=== PATIENT | male | born 1980 | race Caucasian/White ===

== ENCOUNTER 2018-01-29 14:32 | Emergency (ER) | payer OTHER, MEDICARE, SELFPAY ==
[2018-01-29 14:46] VITALS: BP 165/94; PULSE 83; RESP 18; TEMP 36.7; O2SAT 96
--- NOTE | 2018-01-29 15:05 | DI.RAD_ITS ---
SYMPTOMS/DIAGNOSIS: LT CHEST PAIN WITH SHORTNESS OF BREATH PA AND LATERAL CHEST: The heart is normal in size. The lungs are clear. The mediastinal structures and pleura appear intact. CONCLUSION: Normal chest.
--- NOTE | 2018-01-29 15:08 | W.ED.GENAD ---
Discharge Plan Disposition Patient Disposition: HOME Condition: Good Discharge Details Chief Complaint: Chest/Rib Clinical Impression: Chest wall pain, Bursitis of shoulder Primary Care Provider: None,None ED Provider: Zachery Chow Discharge Instructions Instructions: Shoulder Pain (ED), Chest Wall Pain (ED) Referrals: [facility] Emergency Dept. [Outside] - Return if symptoms worsen Discharge Data Discharge Date/Time-TO BE ENTERED AT DEPARTURE: 01/29/18 17:45 Medical Decision Making Exam and history consisting with chest wall pain and shoulder bursitis. However with chest pain and associated SOB with exertion I believe it would be prudent to evaluate for cardiac cause versus PE. He has no family history. Dad had valve replacement but not cardiac disease per se. I explained to him and dad this takes awhile and they are in agreement to stay. Apprised of lab work and x-ray impression. [facility]. No acute pathology found on labs are x-ray to explain pain. We discussed chest wall pain, shoulder bursitis, and diabetes. He agreed to f/u with pcp. Imaging Data Radiologic Study: Imaging: X-Ray My impression: No acute pathology on chest or shoulder. Radiologist's impression: [facility]: IMPRESSION: No acute findings. IMPRESSION: No acute findings. Lab Data Lab results reviewed: Yes I reviewed the patient's lab results. Lab results narrative: No acute pathology. Glucose elevated at 201. Advised to f/u with pcp to discuss diabetes. ECG Data Interpretation: No acute ST changes. Read by myself and Dr. Mckeon. HPI General Date/Time Provider Initiated Documentation: 01/29/18 14:40. Limitations to Documentation: no limitations. Information obtained by: patient. History of Present Illness 37 year old M presents to the emergency department with the chief complaint of left chest and shoulder pain. , described as mild, HPI Narrative: 37 y/o male here with his father with c/o left upper chest wall pain with associated SOB, left shoulder pain and left groin pain. The symptoms have been intermittent for the last three months. He lifts heavy objects at work which could cause the pain in chest and shoulder. Yesterday he was out hunting and he walked a mile in deep snow. The chest pain and sob started then as well as the left groin pain. Denies any illness or fever. Denies any falls or injuries. 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 He denies smoking but does chew tobacco. Quit drinking two years ago. Related Data Allergies Allergy/AdvReac Type Severity Reaction Status Date / Time No Known Allergies Allergy Unverified 01/29/18 15:37 General Stated Complaint: Chest/Rib MELISSA: 3 Review of Systems ENT Reports system reviewed and no additional complaints, except as docu Cardiovascular Reports chest pain, Reports chest pain with activity and Reports dyspnea on exertion Respiratory Reports cough (dry) and Reports dyspnea on exertion Gastrointestinal Reports system reviewed and no additional complaints, except as docu Genitourinary Comments: left groin pain PFSH Social History Smoking/Tobacco Use Status: Current every day Exam Const General: cooperative, comfortable and no acute distress Nutritional Appearance: overweight Orientation: alert, awake and oriented x3 HENMT Head: atraumatic Ears: hearing grossly normal bilaterally and external ears normal General nose exam: external nose normal Mouth: oral mucosae normal Eyes General: appearance normal, both eyes and all related structures Neck Neck: normal visual inspection, full ROM and no lymphadenopathy Chest Chest: normal inspection of the chest and tenderness (left upper) sternoclavicular joint on the left Breast inspection: normal inspection of the breasts Breast palpation: normal palpation of the breasts Resp Effort & Inspection: normal respiratory effort and able to speak in complete sentences Auscultation: clear to auscultation bilaterally Cardio Rate: regular rate Rhythm: regular rhythm Heart Sounds: S1 normal and S2 normal GI Inspection: normal to inspection and striae Palpation: soft and nontender Male General Exam: Yes normal external exam Penis: normal penis Meatus: meatus normal Scrotum: scrotum normal Testes: normal Back/Spine/Pelvis Back: No back tenderness Skin General skin exam: no rashes or lesions noted Neuro General: alert, awake, oriented x3, gait normal, tone normal and moves all extremities Extrem General: normal to inspection, full ROM and normal capillary refill Left upper extremity: normal to inspection, full ROM, normal capillary refill and shoulder/upper arm Details: tenderness Location: over the biceps tendon, over the subacromial bursa and over the deltoid bursa; no crepitus and no deformity Psych Appearance: grossly normal Speech and Movement: speech and movement normal Mood: congruent mood Affect: normal affect Attitude: cooperative Thought Process: normal Thought Content: normal Insight: insight good Judgment: judgment good Course Vital Signs Temperature 36.7 C 01/29/18 14:46 Pulse 83 01/29/18 14:46 Respiratory Rate 18 01/29/18 14:46 Blood Pressure 165/94 H 01/29/18 14:46 Pulse Oximetry 96 01/29/18 14:46 Temperature 36.7 C 01/29/18 14:46 Temperature Source Skin 01/29/18 14:46 Pulse 83 01/29/18 14:46 Respiratory Rate 18 01/29/18 14:46 Respiratory Effort 01/29/18 14:49 Respiratory Depth Normal 01/29/18 14:49 Respiratory Pattern Normal 01/29/18 14:49 Blood Pressure 165/94 H 01/29/18 14:46 Blood Pressure Position Sitting 01/29/18 14:46 Pulse Oximetry 96 01/29/18 14:46 Oxygen Delivery Method Room Air 01/29/18 14:46 Oxygen Flow Rate 0 01/29/18 14:46 Pain Level 2 01/29/18 14:49
--- NOTE | 2018-01-29 15:18 | DI.RAD_ITS ---
SYMPTOMS/DIAGNOSIS: SHOULDER PAIN LEFT SHOULDER: There is no evidence of a fracture or dislocation. The bony structures normally mineralized. The joint space is intact.
--- NOTE | 2018-01-29 15:18 | ED.GENADUL_ITS ---
Discharge Plan Disposition Patient Disposition: HOME Condition: Good Discharge Details Chief Complaint: Chest/Rib Clinical Impression: Chest wall pain, Bursitis of shoulder Primary Care Provider: None,None ED Provider: Zahcery Chow Discharge Instructions Instructions: Shoulder Pain (ED), Chest Wall Pain (ED) Referrals: [facility] Emergency Dept. [Outside] - Return if symptoms worsen Discharge Data Discharge Date/Time-TO BE ENTERED AT DEPARTURE: 01/29/18 17:45 Medical Decision Making Exam and history consisting with chest wall pain and shoulder bursitis. However with chest pain and associated SOB with exertion I believe it would be prudent to evaluate for cardiac cause versus PE. He has no family history. Dad had valve replacement but not cardiac disease per se. I explained to him and dad this takes awhile and they are in agreement to stay. Apprised of lab work and x-ray impression. [facility]. No acute pathology found on labs are x-ray to explain pain. We discussed chest wall pain, shoulder bursitis, and diabetes. He agreed to f/u with pcp. Imaging Data Radiologic Study: Imaging: X-Ray My impression: No acute pathology on chest or shoulder. Radiologist's impression: [facility]: IMPRESSION: No acute findings. IMPRESSION: No acute findings. Lab Data Lab results reviewed: Yes I reviewed the patient's lab results. Lab results narrative: No acute pathology. Glucose elevated at 201. Advised to f /u with pcp to discuss diabetes. ECG Data Interpretation: No acute ST changes. Read by myself and Dr. Mckeon. HPI General Date/Time Provider Initiated Documentation: 01/29/18 14:40 . Limitations to Documentation: no limitations . Information obtained by: patient . History of Present Illness 37 year old M presents to the emergency department with the chief complaint of left chest and shoulder pain. , described as mild, HPI Narrative: 37 y/o male here with his father with c/o left upper chest wall pain with associated SOB, left shoulder pain and left groin pain. The symptoms have been intermittent for the last three months. He lifts heavy objects at work which could cause the pain in chest and shoulder. Yesterday he was out hunting and he walked a mile in deep snow. The chest pain and sob started then as well as the left groin pain. Denies any illness or fever. Denies any falls or injuries. 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 He denies smoking but does chew tobacco. Quit drinking two years ago. Related Data Allergies Allergy/AdvReac Type Severity Reaction Status Date / Time No Known Allergies Allergy Unverified 01/29/18 15:37 General Stated Complaint: Chest/Rib MELISSA: 3 Review of Systems ENT Reports system reviewed and no additional complaints, except as docu Cardiovascular Reports chest pain, Reports chest pain with activity and Reports dyspnea on exertion Respiratory Reports cough (dry) and Reports dyspnea on exertion Gastrointestinal Reports system reviewed and no additional complaints, except as docu Genitourinary Comments: left groin pain PFSH Social History Smoking/Tobacco Use Status: Current every day Exam Const General: cooperative, comfortable and no acute distress Nutritional Appearance: overweight Orientation: alert, awake and oriented x3 HENMT Head: atraumatic Ears: hearing grossly normal bilaterally and external ears normal General nose exam: external nose normal Mouth: oral mucosae normal Eyes General: appearance normal, both eyes and all related structures Neck Neck: normal visual inspection, full ROM and no lymphadenopathy Chest Chest: normal inspection of the chest and tenderness (left upper) sternoclavicular joint on the left Breast inspection: normal inspection of the breasts Breast palpation: normal palpation of the breasts Resp Effort & Inspection: normal respiratory effort and able to speak in complete sentences Auscultation: clear to auscultation bilaterally Cardio Rate: regular rate Rhythm: regular rhythm Heart Sounds: S1 normal and S2 normal GI Inspection: normal to inspection and striae Palpation: soft and nontender Male General Exam: Yes normal external exam Penis: normal penis Meatus: meatus normal Scrotum: scrotum normal Testes: normal Back/Spine/Pelvis Back: No back tenderness Skin General skin exam: no rashes or lesions noted Neuro General: alert, awake, oriented x3, gait normal, tone normal and moves all extremities Extrem General: normal to inspection, full ROM and normal capillary refill Left upper extremity: normal to inspection, full ROM, normal capillary refill and shoulder/upper arm Details: tenderness Location: over the biceps tendon, over the subacromial bursa and over the deltoid bursa; no crepitus and no deformity Psych Appearance: grossly normal Speech and Movement: speech and movement normal Mood: congruent mood Affect: normal affect Attitude: cooperative Thought Process: normal Thought Content: normal Insight: insight good Judgment: judgment good Course Vital Signs Temperature 36.7 C 01/29/18 14:46 Pulse 83 01/29/18 14:46 Respiratory Rate 18 01/29/18 14:46 Blood Pressure 165/94 H 01/29/18 14:46 Pulse Oximetry 96 01/29/18 14:46 Temperature 36.7 C 01/29/18 14:46 Temperature Source Skin 01/29/18 14:46 Pulse 83 01/29/18 14:46 Respiratory Rate 18 01/29/18 14:46 Respiratory Effort 01/29/18 14:49 Respiratory Depth Normal 01/29/18 14:49 Respiratory Pattern Normal 01/29/18 14:49 Blood Pressure 165/94 H 01/29/18 14:46 Blood Pressure Position Sitting 01/29/18 14:46 Pulse Oximetry 96 01/29/18 14:46 Oxygen Delivery Method Room Air 01/29/18 14:46 Oxygen Flow Rate 0 01/29/18 14:46 Pain Level 2 01/29/18 14:49
[2018-01-29 15:34] LABS: Abs Immature Grans 0.02 k/cumm (0.0-0.09); Absolute Basophil Count 0.03 k/cumm (0.0-0.2); Absolute Eosinophil Count 0.08 k/cumm (0.0-0.7); Absolute Lymphocyte Count 2.82 k/cumm (1.2-3.4); Absolute Monocyte Count 0.81 k/cumm (0.11-0.7); Absolute Neutrophil Count 4.79 k/cumm (1.2-6.7); Basophils % 0.4; Eosinophils % 0.9; HCT 47.5 % (40.0-50.0); HGB 16.9 g/dL (13.5-17.5); Immature Grans % 0.2; Mean Corp. HGB Concentration 35.6 g/dL (32.0-36.0); Mean Corpuscular Hemoglobin 32.8 pg (27.0-33.0); Mean Corpuscular Volume 92.2 fL (80-95); Mean Platelet Volume 10.6 fL (8.0-11.0); Monocytes % 9.5; Platelet Count 229 x1000/uL (130-400); RBC 5.15 m/cumm (4.50-6.00); RBC Distribution Width 11.4 % (11.8-14.1); White Blood Cell Count 8.55 k/cumm (4.4-10.8)
[2018-01-29 15:52] LABS: Bilirubin Negative (Negative); Blood Negative (Negative); Clarity Clear; Glucose 500 mg/dL (Negative); Ketones 15 mg/dL (Negative); Leukocyte Esterase Negative (Negative); Nitrite Negative (Negative); Urobilinogen 0.2 EU/dL (Up TO 0.2)
[2018-01-29 15:54] LABS: ALT 56 U/L (12-78); AST 25 U/L (15-37); Albumin 4.1 g/dL (3.4-5.0); Alkaline Phosphatase 76 U/L (46-116); Anion Gap 6.6 mmol/L (3-11); BUN 11 mg/dL (7-18); Bilirubin, Total 0.5 mg/dL (0.2-1.0); CO2 30.4 mmol/L (21.0-32.0); CREATININE 0.98 mg/dL (0.70-1.30); Calcium 9.3 mg/dL (8.5-10.1); Chloride 103 mmol/L (98-107); Glucose 201 mg/dL (70-100); Lipase 117 U/L (73-393); Potassium 4.1 mmol/L (3.5-5.1); Sodium 140 mmol/L (136-145); Total Protein 7.8 g/dL (6.4-8.2)
[2018-01-29 16:03] LABS: Troponin I < 0.02 ng/mL (0.00-0.06)
[2018-01-29 16:10] LABS: D-Dimer 127 ng/mlFEU (<500)
[2018-01-29] MEDS: Normal Saline 1,000 ML 1000 ML IV (16:20)
--- NOTE | 2018-01-29 16:49 | DI.VRAD_ITS ---
EXAM: XR Chest, 2 Views EXAM DATE/TIME: 01/29/2018 3:07 PM CLINICAL HISTORY: 37 years old, male; Pain; Chest pain TECHNIQUE: XR of the chest, 2 views. COMPARISON: No relevant prior studies available. FINDINGS: Lungs: Unremarkable. No consolidation. Pleural space: Unremarkable. No pleural effusion. No pneumothorax. Heart/Mediastinum: Unremarkable. No cardiomegaly. Bones/joints: Unremarkable. IMPRESSION: No acute findings. Dictated and Authenticated by: Fredo Mendes MD. Ordering:KEREN HAGEN MD
--- NOTE | 2018-01-29 16:53 | DI.VRAD_ITS ---
EXAM: XR Left Shoulder Complete, 2 or More Views EXAM DATE/TIME: 01/29/2018 4:16 PM CLINICAL HISTORY: 37 years old, male; Pain; Shoulder; Left TECHNIQUE: XR Left shoulder complete 2 or more views. COMPARISON: No relevant prior studies available. FINDINGS: Bones/joints: Normal. Soft tissues: Normal. IMPRESSION: No acute findings. Dictated and Authenticated by: Fredo Mendes MD. Ordering:KEREN HAGEN MD
== END 2018-01-29 17:45 | disposition home or self-care (01) ==
LOC: ER 17:38
PROVIDERS: Emergency Provider Nurse Practitioner Family
DX: R07.81 Pleurodynia (principal); M75.52 Bursitis of left shoulder
CPT/HCPCS: 36415; 80053; 83690; 93005; 96360; 99285; 71046; 73030; 81003; 84484; 85025; 85379; 93010

== ENCOUNTER 2018-08-09 17:14 | Emergency (ER) | payer OTHER, MEDICARE, SELFPAY ==
[2018-08-09 17:26] VITALS: BP 170/94; PULSE 100; RESP 20; TEMP 36.8; O2SAT 94
--- NOTE | 2018-08-09 17:59 | ED.GENADUL_ITS ---
Discharge Plan Disposition Patient Disposition: HOME Condition: Stable Discharge Details Chief Complaint: Cellulitis Clinical Impression: Abscess of buttock, right Primary Care Provider: None,None ED Provider: Annie Mckeon Home Meds and New Rx's Prescriptions: New doxycycline hyclate 100 mg tablet 100 mg PO BID 7 Days Qty: 14 RF: 0 Continued risperidone [Risperdal] 4 mg Tablet 4 mg PO DAILY RF: 0 lisinopril 20 mg Tablet 10 mg PO DAILY RF: 0 divalproex [Depakote ER] 500 mg Tablet Extended Release 24 Hr 2,000 mg PO DAILY RF: 0 glipizide 5 mg Tablet 5 mg PO DAILY RF: 0 Risperdal Consta 50 mg/2 mL Syringe 50 mg IM RF: 0 Discharge Instructions Instructions: Abscess (ED) Additional Instructions: Take the antibiotics until finished. Apply warm compress to the affected area several times daily for 20 minutes at a time. Check your sugar regularly. Follow-up with your primary care doctor next week for reevaluation. Return immediately to the emergency department with any worsening or new concerning symptoms. Discharge Data Discharge Date/Time-TO BE ENTERED AT DEPARTURE: 08/09/18 18:28 Discharge Physician: Annie Mckeon Medical Decision Making 37yo M w/ a h/o diabetes who presents for painful draining lump to buttock. Afebrile. Pt appears nontoxic. There is a draining abscess noted to R buttock with serous drainage, no pus drainage. No fluctuance. As abscess is already draining, and no further areas of fluctuance noted, do not see an indication for I & D. Accucheck 250. Pt states he just ate. D/w pt the plan to obtain bloodwork to samreen ck electrolytes but pt is declining this at this time and states he can recheck his sugar at home and discuss this further with his primary care doctor if needed. Dose of doxycycline given here and script for home. Pt instructed on good wound care, warm compresses, alternating tylenol and motrin. Pt is instructed to f/u with his primary care doctor for reevaluation and to return here immediately if worse. HPI General Mode of arrival: ambulatory . Date/Time Provider Initiated Documentation: 08/09/18 17:33 . Limitations to Documentation: no limitations . Information obtained by: patient . HPI Narrative: Pt is a 37yo M who presents to the ED w/ a c/o painful lump on his buttock for the past week. He states the lump has gotten bigger and more painful. He states the area popped today and has been draining blood. Pt denies any fever, chills, abdominal pain. Pt has a h/o diabetes and states his sugars have been in the 100s-150s. Related Data Home Medications Medication Instructions Recorded Confirmed Risperdal Consta 50 mg IM 08/09/18 divalproex [Depakote ER] 2,000 mg PO DAILY 08/09/18 08/09/18 doxycycline hyclate 100 mg PO BID 7 Days #14 tab 08/09/18 glipizide 5 mg PO DAILY 08/09/18 08/09/18 lisinopril 10 mg PO DAILY 08/09/18 08/09/18 risperidone [Risperdal] 4 mg PO DAILY 08/09/18 08/09/18 Previous Rx's Medication Instructions Recorded doxycycline hyclate 100 mg PO BID 7 Days #14 tab 08/09/18 Allergies Allergy/AdvReac Type Severity Reaction Status Date / Time No Known Allergies Allergy Unverified 08/09/18 17:28 General Stated Complaint: Cellulitis MELISSA: 3 Review of Systems Review of Systems All systems reviewed & are unremarkable except as noted in HPI and below Constitutional Reports as per HPI, Denies chills and Denies fever(s) Eyes Denies blurry vision ENT Denies dizziness, Denies sore throat and Denies throat swelling Cardiovascular Denies chest pain and Denies dyspnea Respiratory Denies cough and Denies dyspnea Gastrointestinal Denies abdominal pain, Denies diarrhea and Denies vomiting Genitourinary Denies hematuria and Denies dysuria Musculoskeletal Denies back pain and Denies numbness Integumentary/Breasts Reports lesions and Denies rash Neurologic Denies dizziness, Denies focal weakness and Denies numbness Allergic/Immunologic Denies throat swelling [facility] Medical History Schizoaffective disorder (Acute) Diabetes (Chronic) HTN (hypertension) (Chronic) Surgical History History of foot surgery (Acute) Social History Smoking/Tobacco Use Status: Current every day Tobacco Type: smokeless tobacco Alcohol Intake: current Alcohol Intake frequency: 0-2 drinks per day Drug use: Occasionally Substance use type: marijuana Do you feel safe at home: Yes Do you feel safe in your relationship?: Yes Exam Const General: cooperative, healthy appearing and no acute distress HENMT Head: normal to inspection Face and sinus: normal facial exam Eyes General: appearance normal, both eyes and all related structures EOM: EOM intact bilaterally Neck Neck: normal visual inspection and No submandibular swelling Lymphatic: no lymphadenopathy noted Chest Chest: normal inspection of the chest and no tenderness Resp Effort & Inspection: normal respiratory effort and able to speak in complete sentences Auscultation: clear to auscultation bilaterally Cardio Rate: regular rate Rhythm: regular rhythm GI Inspection: normal to inspection Palpation: soft, not firm, not rigid and nontender Auscultation: normal bowel sounds Male General Exam: Yes normal external exam Back/Spine/Pelvis Thoracic/Lumbar Spine: thoracic and lumbar spine normal to inspection Skin Full body images: 1. An approximate 2 x 2 centimeter area of erythema and mild induration and tenderness to palpation with a 3 x 3 mm open draining area in center draining serous drainage. No fluctuance or pus drainage. No red streaking extending from erythema. Neuro General: alert, awake and oriented x3 Cognition: normal cognition Speech: speech normal Motor: muscle tone normal throughout Sensory Exam: no sensory deficits noted Extrem General: normal to inspection, full ROM and no edema Psych Appearance: grossly normal Mental Status: mental status grossly normal Speech and Movement: speech and movement normal Affect: normal affect Course Vital Signs Temperature 98.2 F 08/09/18 17:26 Pulse 100 H 08/09/18 17:26 Respiratory Rate 08/09/18 17:26 Blood Pressure 170/94 H 08/09/18 17:26 Pulse Oximetry 94 L 08/09/18 17:26 Temperature 98.2 F 08/09/18 17:26 Temperature Source Temporal Artery Scan 08/09/18 17:26 Pulse 100 H 08/09/18 17:26 Respiratory Rate 08/09/18 17:26 Respiratory Effort Non-Labored 08/09/18 17:26 Blood Pressure 170/94 H 08/09/18 17:26 Pulse Oximetry 94 L 08/09/18 17:26 Oxygen Delivery Method Room Air 08/09/18 17:26 Oxygen Flow Rate 0 08/09/18 17:26 Pain Level 4 08/09/18 17:26
[2018-08-09] MEDS: Doxycycline Hyclate 100 MG CAP 200 MG PO (18:20)
[2018-08-09] MEDS: Doxycycline Hyclate 100 MG CAP PO (18:20)
== END 2018-08-09 18:28 | disposition home or self-care (01) ==
PROVIDERS: Emergency Provider Physician Assistant
DX: L02.31 Cutaneous abscess of buttock (principal)
CPT/HCPCS: 36416; 82962; 99283

== ENCOUNTER 2018-10-31 02:31 | Emergency (ER) | payer OTHER, SELFPAY ==
[2018-10-31 02:36] VITALS: BP 136/101; PULSE 80; RESP 20; TEMP 37; O2SAT 98
--- NOTE | 2018-10-31 02:39 | ED.GENADUL_ITS ---
Discharge Plan Disposition Patient Disposition: HOME Condition: Good Discharge Details Chief Complaint: Orthopedic Clinical Impression: Foot pain, right Primary Care Provider: Nara Ackerman ED Provider: Juan Jameson Meds and New Rx's Prescriptions: New ibuprofen 600 mg tablet 600 mg PO TID PRN (Reason: pain) Qty: 15 RF: 0 Continued risperidone [Risperdal] 4 mg Tablet 4 mg PO DAILY RF: 0 lisinopril 20 mg Tablet 10 mg PO DAILY RF: 0 divalproex [Depakote ER] 500 mg Tablet Extended Release 24 Hr 2,000 mg PO DAILY RF: 0 glipizide 5 mg Tablet 5 mg PO DAILY RF: 0 Risperdal Consta 50 mg/2 mL Syringe 50 mg IM Q2W RF: 0 Discharge Instructions Additional Instructions: There is no evidence of fracture on the x-ray. This does not appear to be rel ated to an infection as there is no significant redness, warmth. Try keeping his foot elevated as much as you can over the weekend. Use ice and ibuprofen. Follow-up with primary care next week if not better. Return to ED if you develop fever, increasing pain/redness/swelling, other concerns or problems. Referrals: Nara Ackerman [Primary Care Provider] - Medical Decision Making Patient with isolated pain to the dorsum of the right foot. Reproducible with palpation of the fourth metatarsal head area. No discrete trauma that he reca lls. No evidence of erythema, warmth. Minimal swelling. I do not suspect infection. He took Tylenol earlier. Will give Motrin now and obtain x-ray to rule out stress fracture. X-ray per my review and preliminary radiology report is negative. Patient will use ice and ibuprofen over the weekend. Keep foot elevated as much as possible. Follow-up with primary care next week if not better. Return to ED if he develops fever, increasing pain/swelling/redness, other concerns or problems. HPI General Mode of arrival: ambulatory . Date/Time Provider Initiated Documentation: 10/31/18 02:38 . Limitations to Documentation: no limitations . Information obtained by: patient and RN notes reviewed . HPI Narrative: Patient presents to ED with right foot pain. Patient reports it began hurting this evening. He denies any injury that he recalls. He has difficulty ambulating. Pain is in the dorsum of the foot. He is diabetic. He thinks it looks a little red and swollen to him. He denies fevers or chills. Related Data Home Medications Medication Instructions Recorded Confirmed Risperdal Consta 50 mg IM Q2W 08/09/18 10/31/18 divalproex [Depakote ER] 2,000 mg PO DAILY 08/09/18 10/31/18 glipizide 5 mg PO DAILY 08/09/18 10/31/18 lisinopril 10 mg PO DAILY 08/09/18 10/31/18 risperidone [Risperdal] 4 mg PO DAILY 08/09/18 10/31/18 ibuprofen 600 mg PO TID PRN #15 tab 10/31/18 Previous Rx's Medication Instructions Recorded ibuprofen 600 mg PO TID PRN #15 tab 10/31/18 Allergies Allergy/AdvReac Type Severity Reaction Status Date / Time No Known Allergies Allergy Unverified 10/31/18 02:38 General Stated Complaint: Orthopedic MELISSA: 3 Review of Systems Constitutional Denies chills and Denies fever(s) Musculoskeletal Denies arthralgias and Denies joint swelling Integumentary/Breasts Denies erythema and Denies unusual bruising [facility] Medical History Diabetes (Chronic) HTN (hypertension) (Chronic) Schizoaffective disorder (Acute) Surgical History History of foot surgery (Acute) Social History Smoking/Tobacco Use Status: Current every day Tobacco Type: smokeless tobacco Alcohol Intake: current Alcohol Intake frequency: 0-2 drinks per day Drug use: Occasionally Substance use type: marijuana Do you feel safe at home: Yes Do you feel safe in your relationship?: Yes Exam Const General: cooperative, comfortable and no acute distress Orientation: alert and oriented x3 Skin General skin exam: no ecchymosis and no erythema Lesions: no lesions Wounds: no wounds Neuro General: alert, oriented x3 and no focal motor deficits Sensory Exam: no sensory deficits noted Extrem Other: Minimal swelling to the dorsum of the right foot. No erythema or ecchymosis. Point tender over the fourth metatarsal head region. No decreased range of motion or pain with range of motion of the toes or ankle. Neurovascularly intact. Course Vital Signs Temperature 98.6 F 10/31/18 02:36 Pulse 80 10/31/18 02:36 Respiratory Rate 20 10/31/18 02:36 Blood Pressure 136/101 H 10/31/18 02:36 Pulse Oximetry 98 10/31/18 02:36 Temperature 98.6 F 10/31/18 02:36 Temperature Source Tympanic 10/31/18 02:36 Pulse 80 10/31/18 02:36 Respiratory Rate 20 10/31/18 02:36 Blood Pressure 136/101 H 10/31/18 02:36 Blood Pressure Position Sitting 10/31/18 02:36 Pulse Oximetry 98 10/31/18 02:36 Oxygen Delivery Method Room Air 10/31/18 02:36 Oxygen Flow Rate 0 10/31/18 02:36 Pain Level 3 10/31/18 02:36
[2018-10-31] MEDS: Ibuprofen 600 MG TAB PO (02:55)
--- NOTE | 2018-10-31 03:03 | DI.RAD_ITS ---
SYMPTOM/DIAGNOSIS: PAIN, TENDERNESS 4TH MTP AREA RIGHT FOOT: Three views. No priors. No acute fracture or dislocation is identified. There are mild degenerative changes seen of the foot. There is a small plantar calcaneal spur. There is a small enthesophyte at the Achilles insertion site. Hammer toe deformities are seen at the second through fifth digits. IMPRESSION: No acute fracture or dislocation.
--- NOTE | 2018-10-31 03:44 | DI.VRAD_ITS ---
EXAM: XR Right Foot Complete EXAM DATE/TIME: 10/31/2018 2:46 AM CLINICAL HISTORY: 37 years old, male; Pain; Foot; Right; Additional info: Pain/tenderness right 4th mtp area TECHNIQUE: Imaging protocol: XR Right foot. Views: 3 or more views. COMPARISON: No relevant prior studies available. FINDINGS: Bones/joints: No fracture. Hammertoe deformities second through fifth digits. Minute plantar calcaneal spur. Minute enthesophyte at Achilles insertion Soft tissues: Normal. IMPRESSION: No acute findings. Dictated and Authenticated by: Sunil Oglesby MD. Ordering:ALINA Martinez MD
== END 2018-10-31 04:00 | disposition home or self-care (01) ==
PROVIDERS: Emergency Provider Emergency Medicine; PCP Nurse Practitioner Primary Care
DX: M79.671 Pain in right foot (principal); E11.9 Type 2 diabetes mellitus without complications; Z79.84 Long term (current) use of oral hypoglycemic drugs; I10 Essential (primary) hypertension
CPT/HCPCS: 99283; 73630

== ENCOUNTER 2020-07-03 04:18 | Emergency (ER) | payer MEDICARE, OTHER, SELFPAY ==
--- NOTE | 2020-07-03 04:21 | W.ED.GENAD ---
Discharge Plan Disposition Patient Disposition: HOME Condition: Stable Discharge Details Clinical Impression: Acute lumbar back pain Primary Care Provider: Nara Ackerman ED Provider: Juan Jameson Meds and New Rx's Prescriptions: New ibuprofen 600 mg tablet 600 mg PO TID PRN (Reason: pain) Qty: 15 RF: 0 methocarbamol 750 mg tablet 750 mg PO Q8H PRN (Reason: spasms) Qty: 15 RF: 0 lidocaine 5 % adhesive patch,medicated 1 patch topical DAILY Qty: 15 RF: 0 Continued risperidone [Risperdal] 4 mg Tablet 4 mg PO DAILY RF: 0 divalproex [Depakote ER] 500 mg Tablet Extended Release 24 Hr 2,000 mg PO DAILY RF: 0 glipizide 5 mg Tablet 5 mg PO DAILY RF: 0 Risperdal Consta 50 mg/2 mL Syringe 50 mg IM Q2W RF: 0 Discharge Instructions Instructions: Low Back Strain (ED) Additional Instructions: Your pain appears to be musculoskeletal in nature. Your labs and CT scan look fine. Activity as tolerated but do try to move around some, stretch and use ice or heat whichever seems to work better. Medications as prescribed to help with pain and spasm. Follow up with your doctor early nest week if not improving. Return to ED for neurological changes, bladder or bowel problems, other concerns. Referrals: Nara Ackerman [Primary Care Provider] - Medical Decision Making This appears to be musculoskeletal low back pain/spasm after bending over. Neuro in tact and no evidence of cauda equina. Abdomen is soft and NT. No urinary symptoms and does not appear to be renal colic. Young and history/exam not consistent with AAA. Will start IV and try some Toradol and Valium to see if any improvement. 06:10 - No change in pain despite Toradol, Valium and lidocaine patch. Patient stating pain worse on left side. Still seems MS in nature. However, given lack of improvement will send labs, obtain CT stone study and give dose of morphine. 06:55 - Labs and CT scan are fine. Patient sleeping on reevaluation. When told everything looked fine on labs and imaging and that this was MS back pain, he was ok with going home. Instructed activity as tolerated. Ice on/off for couple of days then switch to heat. Gentle stretching and massage. Ibuprofen, Robaxin and lidocaine patches will be prescribed. Follow up with PCP at [place] next week for recheck. Return if neuro changes, bladder/bowel problems, other concerns. HPI General Mode of arrival: EMS. Date/Time Provider Initiated Documentation: 07/03/20 04:20. Limitations to Documentation: no limitations. Information obtained by: patient and RN notes reviewed. HPI Narrative: Patient presents to ED by ambulance with low back pain. 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 [place] pain and spasm when he bent over. Was able to drive home and did take some Advil. Pain much worse with movement. Pain is across the lower back but seems more intense on the left side. No fever, cough, chest pain, shortness of breath. No N/V/D and persistent abdominal pain. Some mild pain shoots to abdomen when he tried to move around. No bladder or bowel incontinence. No numbness or weakness but has significant pain if tries to move LE. Related Data Home Medications Medication Instructions Recorded Confirmed Risperdal Consta 50 mg IM Q2W 08/09/18 07/03/20 divalproex [Depakote ER] 2,000 mg PO DAILY 08/09/18 07/03/20 glipizide 5 mg PO DAILY 08/09/18 07/03/20 risperidone [Risperdal] 4 mg PO DAILY 08/09/18 07/03/20 ibuprofen 600 mg PO TID PRN #15 tab 07/03/20 lidocaine 1 patch TOPICAL DAILY #15 ea 07/03/20 methocarbamol 750 mg PO Q8H PRN #15 tab 07/03/20 Previous Rx's Medication Instructions Recorded ibuprofen 600 mg PO TID PRN #15 tab 07/03/20 lidocaine 1 patch TOPICAL DAILY #15 ea 07/03/20 methocarbamol 750 mg PO Q8H PRN #15 tab 07/03/20 Allergies Allergy/AdvReac Type Severity Reaction Status Date / Time No Known Allergies Allergy Unverified 07/03/20 04:36 General MELISSA: 3 Review of Systems Constitutional Constitutional: Denies fever(s) and Denies weakness ENT Ears, Nose, Mouth, and Throat: Denies neck pain Cardiovascular Cardiovascular: Denies chest pain and Denies dyspnea Respiratory Respiratory: Denies cough and Denies dyspnea Gastrointestinal Gastrointestinal: Denies abdominal pain, Denies diarrhea, Denies nausea and Denies vomiting Genitourinary Genitourinary: Denies urinary incontinence Musculoskeletal Musculoskeletal: Reports abnormal gait, Reports back pain, Denies neck pain, Denies numbness and Denies tingling Neurologic Neurologic: Reports abnormal gait, Denies numbness, Denies tingling and Denies weakness [facility] Medical History (Updated 07/03/20 @ 06:57 by Juan Jameson MD) Diabetes HTN (hypertension) Schizoaffective disorder Surgical History History of foot surgery Social History Smoking/Tobacco Use Status: Current every day Tobacco Type: smokeless tobacco Smoking risk assessment performed?: Yes Alcohol Intake: former Drug use: Current Sobriety Substance use type: former substance user and marijuana Do you feel safe at home: Yes Do you feel safe in your relationship?: Yes Exam Narrative Exam Narrative: Const: WDWN male in NAD. HEENT: NC/AT. Normal facial exam. Eyes: Normal conjunctiva and sclera. Neck: Supple. Trachea midline. Lungs: Normal respiratory effort. Cor: RRR. Good radial pulses. GI: Soft. NT/ND. No guarding or rebound. Back: Left mid lumbar tenderness. Decreased ROM. No spinal tenderness. Neuro: A+O x 3. Normal speech, mentation. Cranial nerves II - XII grossly intact. No gross motor or sensory deficit. Strength and sensation is normal in BLE. DTR are equal and symmetric in LE. Ext: No C/C/E. Good DP pulses bilateral. Skin: Warm and dry without rash.
[2020-07-03 04:28] VITALS: BP 155/85; PULSE 52; RESP 18; TEMP 36.3; O2SAT 96
[2020-07-03] MEDS: diazePAM 10 MG/2 ML SYR 2.5 MG IVP ×2 (05:00→05:39)
[2020-07-03] MEDS: Ketorolac 30 MG/ML VIAL IVP (05:05)
[2020-07-03 05:11] VITALS: BP 119/77; PULSE 53; RESP 20; O2SAT 95
[2020-07-03] MEDS: Lidocaine 5% Patch 1 PATCH TP (05:34)
[2020-07-03 05:40] VITALS: BP 127/77; PULSE 51; RESP 18; O2SAT 94
--- NOTE | 2020-07-03 06:00 | DI.CT_ITS ---
EXAM: CT RENAL COLIC WO CLINICAL HISTORY: left back pain. TECHNIQUE: Imaging Protocol: Axial computed tomography images with coronal and sagittal reformatted images were created and reviewed CONTRAST MATERIAL: Intravenous: none Oral: None COMPARISON: No exams were available for comparison FINDINGS: VISUALIZED LUNG BASES: No nodules nor pleural effusions evident. ABDOMEN: There is no ascites. LIVER: There are no obvious focal hepatic lesions evident of this noninfused study. GALLBLADDER/BILIARY: No obvious gallbladder pathology. CBD is not dilated. PANCREAS: No evidence of pancreatic mass nor dilatation of the pancreatic duct. SPLEEN: Spleen is not enlarged. No obvious intrasplenic lesions. ADRENALS: There are no significant adrenal masses. KIDNEYS:No cysts evident. No solid renal masses. No calculi nor hydronephrosis. . ABDOMINAL AORTA: Abdominal aorta is not enlarged. LYMPH NODES: There is no retroperitoneal nor paraaortic adenopathy. ABDOMINAL WALL/GI: No evidence of significant anterior abdominal wall hernia. No bowel obstruction. PELVIS: LYMPH NODES: There is no intrapelvic nor inguinal adenopathy. GI: No evidence of appendicitis.No evidence of sigmoid diverticulitis. URINARY BLADDER: Distended. REPRODUCTIVE: Prostate is not enlarged. OSSEOUS: Nonexpansile sclerotic bone lesion in the posterior osseous elements of T12, possibly benign bone island versus osteoid osteoma. Measures 1.6 cm AP 1 x 1.2 cm. IMPRESSION: 1. No acute findings in the abdomen and pelvis. 2. Sclerotic bone lesion in the posterior osseous elements of T12, nonexpansile. Possibly benign bon e island versus osteoid osteoma. If clinically indicated nuclear bone scan could be performed. RADIATION DOSE DELIVERED: 1,107mGy.cm Total DLP DATA REPOSITORY: All CT scans at this facility are submitted to the National Radiology Data Registry (NRDR) Dose Index Registry (DIR) with the [employer] (ACR). RADIATION OPTIMIZATION: All CT scans at this facility use at least one of these dose optimization te chniques: automated exposure control; mA and/or kV adjustment per patient size (includes targeted exa ms where dose is matched to clinical indication); or iterative reconstruction.
[2020-07-03 06:23] LABS: Abs Immature Grans 0.02 10^3/uL (0.0-0.06); Absolute Basophil Count 0.05 10^3/uL (0.0-0.2); Absolute Eosinophil Count 0.24 10^3/uL (0.0-0.7); Absolute Lymphocyte Count 3.44 10^3/uL (1.2-3.4); Absolute Monocyte Count 0.58 10^3/uL (0.1-0.8); Absolute Neutrophil Count 3.15 10^3/uL (1.2-6.7); Basophils % 0.7; Eosinophils % 3.2; HCT 42.8 % (40.0-50.0); HGB 15.1 g/dL (13.5-17.5); Immature Grans % 0.3; MCH 31.5 pg (27.0-33.0); MCHC 35.3 % (32.0-36.0); MCV 89.4 fL (80-95); MPV 10.4 fL (8.0-11.0); Monocytes % 7.8; Nucleated RBC 0 %; Platelet Count 237 10^3/uL (130-400); RBC 4.79 10^6/uL (4.36-5.78); RDW 10.9 % (11.8-14.1); WBC 7.48 10^3/uL (4.4-10.8)
[2020-07-03 06:37] LABS: ALT 29 U/L (16-63); AST 10 U/L (15-37); Albumin 3.4 g/dL (3.4-5.0); Alkaline Phosphatase 82 U/L (46-116); Anion Gap 8.9 mmol/L (3-11); BUN 9 mg/dL (7-18); Bilirubin, Total 0.4 mg/dL (0.2-1.0); CO2 28.1 mmol/L (21.0-32.0); CREATININE 0.9 mg/dL (0.70-1.30); Calcium 8.6 mg/dL (8.5-10.1); Chloride 104 mmol/L (98-107); Glucose 268 mg/dL (74-106); Lipase 214 U/L (73-393); Sodium 141 mmol/L (136-145); Total Protein 6.6 g/dL (6.4-8.2)
--- NOTE | 2020-07-03 06:46 | DI.VRAD_ITS ---
PROCEDURE INFORMATION: Exam: CT Abdomen And Pelvis Without Contrast Exam date and time: 07/03/2020 6:28 AM Age: 39 years old Clinical indication: Other: Left back pain TECHNIQUE: Imaging protocol: Computed tomography of the abdomen and pelvis without contrast. COMPARISON: No relevant prior studies available. FINDINGS: Liver: Normal. No mass. Gallbladder and bile ducts: Normal. No calcified stones. No ductal dilation. Pancreas: Normal. No ductal dilation. Spleen: Normal. No splenomegaly. Adrenal glands: Normal. No mass. Kidneys and ureters: Normal. No hydronephrosis. Stomach and bowel: Unremarkable. No obstruction. No mucosal thickening. Appendix: No evidence of appendicitis. Intraperitoneal space: Unremarkable. No free air. No significant fluid collection. Vasculature: Unremarkable. No abdominal aortic aneurysm. Lymph nodes: Unremarkable. No enlarged lymph nodes. Urinary bladder: Unremarkable as visualized. Reproductive: Unremarkable as visualized. Bones/joints: Mild lumbar degenerative disc disease is noted Soft tissues: Unremarkable. IMPRESSION: No acute findings Dictated and Authenticated by: Dre Plasencia MD. Ordering:ALINA Martinez MD
[2020-07-03] MEDS: Methocarbamol 750 MG TAB PO (07:19)
== END 2020-07-03 08:38 | disposition home or self-care (01) ==
LOC: ER 07:12
PROVIDERS: Emergency Provider Emergency Medicine; PCP Nurse Practitioner Primary Care
DX: M54.5 Low back pain (principal)
CPT/HCPCS: 80053; 83690; 96374; 96375; 96376; 99284; 74176; 85025; 99283; J1885; J3360

== ENCOUNTER 2020-07-13 02:35 | Emergency (ER) | payer OTHER, SELFPAY ==
[2020-07-13 02:41] VITALS: BP 155/97; PULSE 80; RESP 18; TEMP 36.3; O2SAT 96
--- NOTE | 2020-07-13 02:44 | ED.GENADUL_ITS ---
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, Degenerative arthritis of metacarpophalangeal joint of right thumb Primary Care Provider: Nara Ackerman ED Provider: Martin Mccain Home Meds and New Rx's Prescriptions: Continued risperidone [Risperdal] 4 mg Tablet 4 mg PO DAILY RF: 0 divalproex [Depakote ER] 500 mg Tablet Extended Release 24 Hr 2,000 mg PO DAILY RF: 0 glipizide 5 mg Tablet 5 mg PO DAILY RF: 0 Risperdal Consta 50 mg/2 mL Syringe 50 mg IM Q2W RF: 0 ibuprofen 600 mg tablet 600 mg PO TID PRN (Reason: pain) Qty: 15 RF: 0 methocarbamol 750 mg tablet 750 mg PO Q8H PRN (Reason: spasms) Qty: 15 RF: 0 lidocaine 5 % adhesive patch,medicated 1 patch topical DAILY Qty: 15 RF: 0 Discharge Instructions Instructions: Arthritis (ED) Additional Instructions: At this time the pain in your thumbs is likely from your chronic injuries in the past from the fracture of your thumbs. Please use the splints as needed for help and support. Please take ibuprofen 800 mg every 6 hours as needed for pain. If you notice any worsening of your symptoms, or any new symptoms such as vomiting, diarrhea, fever, chills, shortness of breath, chest pain, numbness, weakness, or fainting , please return immediately to the emergency department for reevaluation. Please follow up with your primary care provider as soon as possible for reassessment and reevaluation. As always, it was a pleasure partic ipating in your medical care today. Referrals: Nara Ackerman [Primary Care Provider] - Medical Decision Making 39-year-old male presents today for bilateral thumb pain. Patient states that his thumbs have been sore since he was 9 years old when his father initially broke them. 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 He denies any new trauma, or acute change in pain and states that his finger continued and present for years. Uncertain as to what the specific reason is for the evaluation tonight otherwise. The patient has not use Tylenol or Motrin at home for his thumb pain. He denies any fever, chills, numbness, tingling, redness or warmth in his thumb. No other complaints at this time. Pain is made worse with use, and improved with rest. Physical exam is notably unremarkable, excellent sensation movement and strength for the thumb in all directions for both the left and right thumb. No significant crepitus deformity redness or warmth. Symptoms are inconsistent with fracture as he has had no recent trauma. Suspect that he has early arthritis secondary to the old fracture is that occurred 30 years ago. Recommend Tylenol, Motrin. Did give the patient a thumb spica brace for both hands and he felt that this was notable improvement for support. Patient will be discharged home. Diagnosis arthritis of the MCP joints bilaterally of the thumbs. I have extensively reviewed the treatment plan and discharge instruc tions with the patient. I have addressed all patient concerns at this time. The patient was made aware of what symptoms to monitor for that would warrant a return to the emergency department. Discussed the plan with the patient, they demonstrate verbal understanding and agreement with our assessment and plan at this time. The documentation in this chart was dictated using [employer] dictation software. Please excuse any dictation errors. Symptoms are currently inconsistent with evidence of significant rheumatoid arthritis or gout. HPI General Date/Time Provider Initiated Documentation: 07/13/20 02:38 . HPI Narrative: 39-year-old male presents today for bilateral thumb pain. Patient states that his thumbs have been sore since he was 9 years old when his father initially broke them. 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 He denies any new trauma, or acute change in pain and states that his finger continued and present for years. Uncertain as to what the specific reason is for the ev aluation tonight otherwise. The patient has not use Tylenol or Motrin at home for his thumb pain. He denies any fever, chills, numbness, tingling, redness or warmth in his thumb. No other complaints at this time. Pain is made worse with use, and improved with rest. Related Data Home Medications Medication Instructions Recorded Confirmed Risperdal Consta 50 mg IM Q2W 08/09/18 07/13/20 divalproex [Depakote ER] 2,000 mg PO DAILY 08/09/18 07/13/20 glipizide 5 mg PO DAILY 08/09/18 07/13/20 risperidone [Risperdal] 4 mg PO DAILY 08/09/18 07/13/20 ibuprofen 600 mg PO TID PRN #15 tab 07/03/20 07/13/20 lidocaine 1 patch TOPICAL DAILY #15 ea 07/03/20 07/13/20 methocarbamol 750 mg PO Q8H PRN #15 tab 07/03/20 07/13/20 Previous Rx's Medication Instructions Recorded ibuprofen 600 mg PO TID PRN #15 tab 07/03/20 lidocaine 1 patch TOPICAL DAILY #15 ea 07/03/20 methocarbamol 750 mg PO Q8H PRN #15 tab 07/03/20 Allergies Allergy/AdvReac Type Severity Reaction Status Date / Time No Known Allergies Allergy Unverified 07/13/20 02:42 General Stated Complaint: Orthopedic MELISSA: 4 Review of Systems All systems reviewed & are unremarkable except as noted in HPI and below PFSH Medical History Diabetes HTN (hypertension) Schizoaffective disorder Surgical History History of foot surgery Social History Smoking/Tobacco Use Status: Current every day Tobacco Type: smokeless tobacco Smoking risk assessment performed?: Yes Alcohol Intake: former Drug use: Current Sobriety Substance use type: former substance user and marijuana Do you feel safe at home: Yes Do you feel safe in your relationship?: Yes Exam Narrative Exam Narrative: 1.Const: Well-nourished, Well-developed, appearing stated age 2.Eyes: PERRL, no conjunctival injection, and symmetrical lids. 3.ENT: Atraumatic external nose and ears. Moist MM. Neck: Symmetric, trachea midline, No thyromegaly. 4.CVS: +S1/S2, No murmurs or gallops. Peripheral pulses 2+ and equal in all extremities. Brisk capillary refill in all extremities. 5.RESP: Unlabored respiratory effort. Clear to auscultation bilaterally. No wheezes rales or rhonchi 6.GI: Soft, Nontender/Nondistended, No hepatosplenomegaly. No guarding or rebound. 7.MSK: Normocephalic/Atraumatic, Extremities w/o deformity or ttp No cyanosis or clubbing, Normal movement of all extremities Patient demonstrates excellent movement of both thumbs in all directions for flexion, extension, abduction and adduction. No significant crepitus. No re dness. No deficits. No focal tenderness, no reproducible pain with palpation. Patient's subjective pain is located at the MCP joints of both thumbs. 8.Skin: Warm, Dry. No rashes or lesions. 9.Neuro: manager utility II-XII grossly intact. Sensation grossly intact, no focal neurologic deficits. 10.Psych: (AAO) x3. Appropriate mood and affect Course Vital Signs Vital signs: Vital Signs Temperature 36.3 C L 07/13/20 02:41 Pulse 80 07/13/20 02:41 Respiratory Rate 18 07/13/20 02:41 Blood Pressure 155/97 H 07/13/20 02:41 Pulse Oximetry 96 07/13/20 02:41 Temperature 36.3 C L 07/13/20 02:41 Temperature Source Temporal Artery Scan 07/13/20 02:41 Pulse 80 07/13/20 02:41 Respiratory Rate 18 07/13/20 02:41 Blood Pressure 155/97 H 07/13/20 02:41 Blood Pressure Position Sitting 07/13/20 02:41 Pulse Oximetry 96 07/13/20 02:41 Oxygen Delivery Method Room Air 07/13/20 02:41 Oxygen Flow Rate 0 07/13/20 02:41
== END 2020-07-13 02:48 | disposition home or self-care (01) ==
PROVIDERS: Emergency Provider Student in an Organized Health Care Education/Training Program; PCP Nurse Practitioner Primary Care
DX: M19.141 Post-traumatic osteoarthritis, right hand (principal); M19.142 Post-traumatic osteoarthritis, left hand
CPT/HCPCS: 29125; 99283

== ENCOUNTER 2020-08-22 19:32 | Emergency (ER) | payer OTHER, SELFPAY ==
[2020-08-22 19:39] VITALS: BP 158/97; PULSE 79; RESP 18; TEMP 36.8; O2SAT 99
--- NOTE | 2020-08-22 19:45 | DI.RAD_ITS ---
Exam(s) XR LUMBAR SPINE COMPLETE EXAM: XR LUMBAR SPINE COMPLETE CLINICAL HISTORY: lower lumbar back pain. TECHNIQUE: 2D digital imaging was performed. COMPARISON: No exams were available for comparison FINDINGS: BONES: No fracture or destructive lesion. Vertebral bodies are unremarkable. No facet hypertrophy vicenta ntified. DISKS: Mild disc space narrowing and spurring at L4-5 and L5-S1. ALIGNMENT: Lumbar spinal alignment is within normal limits. SOFT TISSUE: Normal. IMPRESSION: Mild degenerative changes in the lumbar spine. DATA REPOSITORY: RADIATION DOSE DELIVERED:
--- NOTE | 2020-08-22 19:59 | ED.GENADUL_ITS ---
Discharge Plan Disposition Patient Disposition: HOME Condition: Good Discharge Details Clinical Impression: Acute lumbar back pain Primary Care Provider: Nara Ackerman ED Provider: Martin Mccain Home Meds and New Rx's Prescriptions: New lidocaine [Lidoderm] 1 PATCH patch 1 patch Topical Q24H Qty: 4 RF: 0 cyclobenzaprine 10 mg tablet 10 mg PO TID Qty: 14 RF: 0 prednisone 50 MG tablet 50 mg PO DAILY Qty: 5 RF: 0 Continued risperidone [Risperdal] 4 mg Tablet 4 mg PO DAILY RF: 0 Risperdal Consta 50 mg/2 mL Syringe 50 mg IM Q2W RF: 0 ibuprofen 600 mg tablet 600 mg PO TID PRN (Reason: pain) Qty: 15 RF: 0 lidocaine 5 % adhesive patch,medicated 1 patch topical DAILY Qty: 15 RF: 0 Discharge Instructions Instructions: Low Back Strain (ED) Additional Instructions: At this time your signs and symptoms are clinically consistent with a back sprain. This can cause significant pain and take a fair bit of time to heal. I expect 1 to 2 months for potential resolution. In the meantime do not lift anything greater than 5 pounds for the next 2 weeks. Avoid any significant vigorous physical activity. Perform easy gentle regular activities at home without any significant bending or lifting. Please take the steroids as directed. You have been given a prescription for Lidoderm patch. If your insurance does not cover this you can get [id number] Lidoderm patches at 4% which are almost just as effective. Please take the Flexeril as directed but do not take it when driving or operating any vehicles or heavy machinery, swimming, taking long baths, or operating firearms. Please use a heating pad as often as possible on your back. Perform daily gentle stretches on your back. Please continue to take the Tylenol and Motrin. You can take 1000 mg of Tylenol every 6 hours and 600 mg of ibuprofen every 6 hours. If you notice any worsening of your symptoms, or any new symptoms such as vomiting, diarrhea, fever, chills, shortness of breath, chest pain, numbness or tingling in your groin or legs, weakness in your legs, loss of control for your bowels or bladder, or fainting , please return immediately to the emergency department for reevaluation. Please follow up with your primary care provider as soon as possible for reassessment and reevaluation. As always, it was a pleasure participating in your medical care today. Stand Alone Forms: Work Release Medical Decision Making 39-year-old male with a past medical history of arthritis, presents today for evaluation of back pain. Patient states that 4 days ago he was yanking on a cord when he developed mild low back pain. 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 Since then he has had worsening low back pain, as well as tingling over the anterior aspect of his left thigh. Patient denies any saddle anesthesia, numbness or tingling in the groin, change in sensation when wiping. Patient denies any change in sensation during sexual intercourse, difficulty achieving or maintaining an erection or ejaculation, bowel or bladder incontinence, leakage, or retention. Patient denies any weakness in the lower extremities, atypical falls or imbalance. No other complaints at this time. Patient has taken Tylenol and this did not help at all . Physical exam demonstrates notable paraspinal muscle spasms, no midline tenderness. Neurologic exam is unremarkable, good rectal tone, good perirectal sensation, no concerning red flags. No midline lumbar spine tenderness. Out of an abundance of caution we will get x-rays of the lumbar spine, give prednisone and Toradol. Suspect radiculopathy as the cause of his symptoms. Sensation of the anterior thighs notably intact in spite of his subjective symptoms of tingling on the anterior thigh. No indication for emergent MRI. No clinical evidence of cauda equina syndrome X-ray result is negative for acute process, there is mild to moderate multilevel lower lumbar degenerative disc disease. Signs and symptoms are clinically inconsistent with cauda equina syndrome. Pain is well improved after medication administration. Patient feels well. Patient will be discharged home. Will prescribe muscle relaxants, Lidoderm patch, and steroids. Discussed red flags which to return. Signs and symptoms at this time are clinically consistent with radiculopathy. I have extensively reviewed the treatment plan and discharge instructions with the patient. I have addressed all patient concerns at this time. The patient was made aware of what symptoms to monitor for that would warrant a return to the emergency department. Discussed the plan with the patient, they demonstrate verbal understanding and agreement with our assessment and plan at this time. The documentation in this chart was dictated using [employer] dictation software. Please excuse any dictation errors. FINDINGS: Bones/joints: Five lumbar type vertebral bodies. Pedicles and spinous processes appear intact on the frontal image. Sacroiliac joints are unremarkable. Oblique views demonstrate intact posterior elements. Mild L4-L5 and moderate L5-S1 disc space narrowing. Vertebral body heights and other disc spaces are maintained. No significant spondylolisthesis. Soft tissues: Unremarkable. IMPRESSION: [id number] multilevel lower lumbar degenerative disc disease. Thank you for allowing us to participate in the care of your patient. Dictated and Authenticated by: Fredo Conner MD 08/22/2020 9:16 PM Eastern Time ([place]) HPI General Date/Time Provider Initiated Documentation: 08/22/20 19:50 . HPI Narrative: 39-year-old male with a past medical history of arthritis, presents today for evaluation of back pain. Patient states that 4 days ago he was yanking on a cord when he developed mild low back pain. 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 Since then he has had worsening low back pain, as well as tingling over the anterior aspect of his left thigh. Patient denies any saddle anesthesia, numbness or tingling in the groin, change in sensation when wiping. Patient denies any change in sensation during sexual intercourse, difficulty achieving or maintaining an erection or ejaculation, bowel or bladder incontinence, leakage, or retention. Patient denies any weakness in the lower extremities, atypical falls or imbalance. No other complaints at this time. Patient has taken Tylenol and this did not help at same Related Data Home Medications Medication Instructions Recorded Confirmed Risperdal Consta 50 mg IM Q2W 08/09/18 08/22/20 risperidone [Risperdal] 4 mg PO DAILY 08/09/18 08/22/20 ibuprofen 600 mg PO TID PRN #15 tab 07/03/20 08/22/20 lidocaine 1 patch TOPICAL DAILY #15 ea 07/03/20 08/22/20 cyclobenzaprine 10 mg PO TID #14 tab 08/22/20 lidocaine [Lidoderm] 1 patch TOPICAL Q24H #4 ea 08/22/20 prednisone 50 mg PO DAILY #5 tab 08/22/20 Previous Rx's Medication Instructions Recorded ibuprofen 600 mg PO TID PRN #15 tab 07/03/20 lidocaine 1 patch TOPICAL DAILY #15 ea 07/03/20 cyclobenzaprine 10 mg PO TID #14 tab 08/22/20 lidocaine [Lidoderm] 1 patch TOPICAL Q24H #4 ea 08/22/20 prednisone 50 mg PO DAILY #5 tab 08/22/20 Allergies Allergy/AdvReac Type Severity Reaction Status Date / Time No Known Allergies Allergy Unverified 08/22/20 19:42 General Stated Complaint: Nk/Back Pain MELISSA: 4 Review of Systems All systems reviewed & are unremarkable except as noted in HPI and below PFSH Medical History (Updated 08/22/20 @ 21:11 by Martin Mccain DO) Diabetes HTN (hypertension) Schizoaffective disorder Surgical History History of foot surgery Social History Smoking/Tobacco Use Status: Current every day Tobacco Type: smokeless tobacco Smoking risk assessment performed?: Yes Alcohol Intake: former Drug use: Current Sobriety Substance use type: former substance user Do you feel safe at home: Yes Do you feel safe in your relationship?: Yes Exam Narrative Exam Narrative: 1.Const: Well-nourished, Well-developed, appearing stated age 2.Eyes: PERRL, no conjunctival injection, and symmetrical lids. 3.ENT: Atraumatic external nose and ears. Moist MM. Neck: Symmetric, trachea midline, No thyromegaly. 4.CVS: +S1/S2, No murmurs or gallops. Peripheral pulses 2+ and equal in all extremities. Brisk capillary refill in all extremities. 5.RESP: Unlabored respiratory effort. Clear to auscultation bilaterally. No wheezes rales or rhonchi 6.GI: Soft, Nontender/Nondistended, No hepatosplenomegaly. No guarding or rebound. 7.MSK: Normocephalic/Atraumatic, Extremities w/o deformity or ttp No cyanosis or clubbing, Normal movement of all extremities. No midline tenderness to palpation over the CTLS spine. Mild bilateral lower paraspinal lumbar tenderness and notable paraspinal muscle spasm. normal ROM in flexion, extension, side bend, and rotation. Patient has +5 out of 5 strength in the lower extremities in dorsiflexion and plantarflexion, knee flexion and extension, hip flexion and extension. Normal strength for dorsiflexion and plantar flexion of the great toe bilaterally. There is +2 over 2 dorsalis pedis pulses bilaterally. There is normal sensation to the skin with light touch at the foot, knee, and hip. Normal saddle sensation. Good sensation over the deep sural nerve area bilaterally. Rectal exam demonstrates good rectal tone and good perirectal sensation. Reflexes are +2 over 4 in the patellar reflex bilaterally. 8.Skin: Warm, Dry. No rashes or lesions. 9.Neuro: weight shifter II-XII grossly intact. Sensation grossly intact, no focal neurologic deficits. 10.Psych: (AAO) x3. Appropriate mood and affect Course Vital Signs Vital signs: Vital Signs Temperature 36.8 C 08/22/20 19:39 Pulse 79 08/22/20 19:39 Respiratory Rate 18 08/22/20 19:39 Blood Pressure 158/97 H 08/22/20 19:39 Pulse Oximetry 99 08/22/20 19:39 Temperature 36.8 C 08/22/20 19:39 Temperature Source Skin 08/22/20 19:39 Pulse 79 08/22/20 19:39 Respiratory Rate 18 08/22/20 19:39 Respiratory Effort Non-Labored 08/22/20 19:42 Blood Pressure 158/97 H 08/22/20 19:39 Blood Pressure Position Sitting 08/22/20 19:39 Pulse Oximetry 99 08/22/20 19:39 Oxygen Delivery Method Room Air 08/22/20 19:39 Oxygen Flow Rate 0 08/22/20 19:39 Pain Level 7 08/22/20 19:44
[2020-08-22] MEDS: Ketorolac 30 MG/ML VIAL IM (20:11)
[2020-08-22] MEDS: predniSONE 20 MG TAB 60 MG PO (20:12)
--- NOTE | 2020-08-22 21:17 | DI.VRAD_ITS ---
PROCEDURE INFORMATION: Exam: XR Lumbosacral Spine Exam date and time: 08/22/2020 7:55 PM Age: 39 years old Clinical indication: Other: Lower lumbar back pain TECHNIQUE: Imaging protocol: XR of the lumbosacral spine. Views: 4 or 5 views. COMPARISON: CT RENAL COLIC WO 07/03/2020 6:31 AM FINDINGS: Bones/joints: Five lumbar type vertebral bodies. Pedicles and spinous processes appear intact on the frontal image. Sacroiliac joints are unremarkable. Oblique views demonstrate intact posterior elements. Mild L4-L5 and moderate L5-S1 disc space narrowing. Vertebral body heights and other disc spaces are maintained. No significant spondylolisthesis. Soft tissues: Unremarkable. IMPRESSION: [id number] multilevel lower lumbar degenerative disc disease. Dictated and Authenticated by: Fredo Conner MD. Ordering:DIONNE Salazar MD
== END 2020-08-22 20:20 | disposition home or self-care (01) ==
PROVIDERS: Emergency Provider Student in an Organized Health Care Education/Training Program; PCP Nurse Practitioner Primary Care
DX: M54.5 Low back pain (principal)
CPT/HCPCS: 96372; 99284; 72110; 99283; J1885; J7512

== ENCOUNTER 2020-08-29 01:20 | Emergency (ER) | payer OTHER, SELFPAY ==
[2020-08-29 01:24] VITALS: BP 142/103; PULSE 84; RESP 18; TEMP 36.8; O2SAT 93
--- NOTE | 2020-08-29 01:26 | ED.GENADUL_ITS ---
Discharge Plan Disposition Patient Disposition: HOME Condition: Good Discharge Details Clinical Impression: Inguinal mass Primary Care Provider: Nara Ackerman ED Provider: Juan Jameson Meds and New Rx's Prescriptions: Continued risperidone [Risperdal] 4 mg Tablet 4 mg PO DAILY RF: 0 Risperdal Consta 50 mg/2 mL Syringe 50 mg IM Q2W RF: 0 ibuprofen 600 mg tablet 600 mg PO TID PRN (Reason: pain) Qty: 15 RF: 0 lidocaine 5 % adhesive patch,medicated 1 patch topical DAILY Qty: 15 RF: 0 lidocaine [Lidoderm] 1 PATCH patch 1 patch Topical Q24H Qty: 4 RF: 0 cyclobenzaprine 10 mg tablet 10 mg PO TID Qty: 14 RF: 0 prednisone 50 MG tablet 50 mg PO DAILY Qty: 5 RF: 0 Discharge Instructions Additional Instructions: You should follow up with primary care. Likely need a scrotal ultrasound to delineate what these are though I suspect they are spermatoceles. Return to ED for increasing pain, redness, abdominal pain, fever, other concerns Referrals: Nara Ackerman [Primary Care Provider] - Medical Decision Making Patient presenting with masses at the entrance of the inguinal canals. The right is much larger than the left. Both are nontender, rounded in nature, firm and appear to be related to the spermatic cord. Testicles and epididymis feel normal. I do not appreciate masses associated with the testicle. The inguinal canals themselves appear normal with no fullness or mass felt in the canal. The masses do not feel like varicoceles and are firm and round. This is not hydrocele. Consider spermatocele but masses seem relatively high for this. May be inguinal hernias but lacks fullness within the canal itself. Recommend follow-up with primary care for scrotal ultrasound as outpatient. Return to ED if abdominal pain, fever, increased swelling/pain/redness in the scrotal area, other concerns. HPI General Mode of arrival: ambulatory . Date/Time Provider Initiated Documentation: 08/29/20 01:25 . Limitations to Documentation: no limitations . Information obtained by: patient and RN notes reviewed . HPI Narrative: Patient presents to the ED with complaint of lumps in his scrotum. He has noticed one on the right side for a few months now. Noticed one on the left recently. They seem to be getting larger. Little uncomfortable but not necessarily painful. He has no difficulty urinating. He has no discharge. There are no wounds or sores present. He denies any abdominal pain. Related Data Home Medications Medication Instructions Recorded Confirmed Risperdal Consta 50 mg IM Q2W 08/09/18 08/29/20 risperidone [Risperdal] 4 mg PO DAILY 08/09/18 08/29/20 ibuprofen 600 mg PO TID PRN #15 tab 07/03/20 08/29/20 lidocaine 1 patch TOPICAL DAILY #15 ea 07/03/20 08/29/20 cyclobenzaprine 10 mg PO TID #14 tab 08/22/20 08/29/20 lidocaine [Lidoderm] 1 patch TOPICAL Q24H #4 ea 08/22/20 08/29/20 prednisone 50 mg PO DAILY #5 tab 08/22/20 08/29/20 Previous Rx's Medication Instructions Recorded ibuprofen 600 mg PO TID PRN #15 tab 07/03/20 lidocaine 1 patch TOPICAL DAILY #15 ea 07/03/20 cyclobenzaprine 10 mg PO TID #14 tab 08/22/20 lidocaine [Lidoderm] 1 patch TOPICAL Q24H #4 ea 08/22/20 prednisone 50 mg PO DAILY #5 tab 08/22/20 Allergies Allergy/AdvReac Type Severity Reaction Status Date / Time No Known Allergies Allergy Unverified 08/29/20 01:28 General MELISSA: 4 Review of Systems Constitutional Constitutional: Denies fever(s) Cardiovascular Cardiovascular: Denies dyspnea Respiratory Respiratory: Denies cough and Denies dyspnea Gastrointestinal Gastrointestinal: Denies abdominal pain and Denies vomiting Genitourinary Genitourinary: Denies difficulty urinating, Denies genital pain, Denies dysuria, Denies penile discharge, Denies scrotal swelling and Denies testicular pain Integumentary/Breasts Skin/Breast: Denies erythema and Denies wounds [facility] Medical History (Updated 08/29/20 @ 01:37 by Juan Jameson MD) Diabetes HTN (hypertension) Schizoaffective disorder Surgical History History of foot surgery Social History Smoking/Tobacco Use Status: Current every day Tobacco Type: smokeless tobacco Smoking risk assessment performed?: Yes Alcohol Intake: former Drug use: Current Sobriety Substance use type: former substance user Do you feel safe at home: Yes Do you feel safe in your relationship?: Yes Exam Narrative Exam Narrative: Const: WDWN male in NAD. HEENT: NC/AT. Normal facial exam. Eyes: Normal conjunctiva and sclera. Neck: Supple. Trachea midline. Lungs: Normal respiratory effort. : Normal appearing male genitalia. Normal penis without discharge or lesions. Normal testicles without tenderness or masses. Normal feeling epididymis. Firm, round, non-tender mass just below the entrance of the inguinal canal on both sides but much larger on right. No fullness or mass appreciated within the inguinal canals. Scrotum appears normal. Neuro: A+O x 3. Normal speech, mentation, gait. Cranial nerves II - XII grossly intact. No gross motor or sensory deficit.
== END 2020-08-29 01:41 | disposition home or self-care (01) ==
PROVIDERS: Emergency Provider Emergency Medicine; PCP Nurse Practitioner Primary Care
DX: N50.89 Other specified disorders of the male genital organs (principal)
CPT/HCPCS: 99282; 99283

== ENCOUNTER 2020-10-01 22:08 | Emergency (ER) | payer OTHER, SELFPAY ==
[2020-10-01 22:15] VITALS: BP 159/97; PULSE 75; RESP 18; TEMP 36.5; O2SAT 98
--- NOTE | 2020-10-01 22:41 | W.ED.GENAD ---
Discharge Plan Disposition Patient Disposition: HOME Condition: Good Discharge Details Clinical Impression: Accidental spider bite Primary Care Provider: Nara Ackerman ED Provider: Aline Menchaca Home Meds and New Rx's Prescriptions: No Action Risperdal Consta 50 mg/2 mL Syringe 50 mg IM Q2W RF: 0 Discharge Instructions Additional Instructions: You may take ibuprofen and Tylenol as needed for pain Keep bite site clean and dry Return for spreading redness, fever, worsening pain This is likely a bui spider and they do not carry that on the toxic human Discharge Data Discharge Date/Time-TO BE ENTERED AT DEPARTURE: 10/01/20 22:50 Medical Decision Making Patient appears well, there is no visible evidence of skin irritation or injury The provider patient brought in with low spider and patient is made aware that this is not toxic spider that the cat bite Patient given low threshold to return with new or worsening complaints and discharged home in stable condition with stable vitals and instructed to use supportive measures, ibuprofen and Tylenol for pain control and Benadryl topically as needed for itching Patient instructed to have blood pressure checked by primary care physician Medical Records Medical records reviewed: Yes I reviewed the patient's medical records. HPI General Mode of arrival: ambulatory. Date/Time Provider Initiated Documentation: 10/01/20 22:41. Limitations to Documentation: no limitations. Information obtained by: patient. HPI Narrative: This 39-year-old gentleman presents with report of spider bite to the popliteal region of his right knee. Patient states that he only saw a spider whacked spattering child. Today in the back 3 the neurological spider was. He states that the red chela to the area where the bite occurred. He denies any additional injuries or concerns at this time. Denies chest pain, shortness of breath, dizziness, weakness, difficulty swallowing, or any additional complaints at this time. He states the pain is not worsening. Related Data Home Medications Medication Instructions Recorded Confirmed Risperdal Consta 50 mg IM Q2W 08/09/18 10/01/20 Allergies Allergy/AdvReac Type Severity Reaction Status Date / Time No Known Allergies Allergy Unverified 08/29/20 01:28 General Stated Complaint: Cellulitis MELISSA: 4 Review of Systems Narrative: Review of systems negative x3 aside from indicated in HPI [facility] Medical History (Updated 10/01/20 @ 22:42 by AN Rowe) Diabetes HTN (hypertension) Schizoaffective disorder Surgical History History of foot surgery Social History Smoking/Tobacco Use Status: Current every day Tobacco Type: smokeless tobacco Smoking risk assessment performed?: Yes Alcohol Intake: former Drug use: Current Sobriety Substance use type: former substance user Do you feel safe at home: Yes Do you feel safe in your relationship?: Yes Exam Const General: cooperative and healthy appearing Extrem Other: In the popliteal region there is no visible sign of trauma, no necrosis, no crepitus, no abscess Course Vital Signs Vital signs: Vital Signs Temperature 36.5 C 10/01/20 22:15 Pulse 75 10/01/20 22:15 Respiratory Rate 18 10/01/20 22:15 Blood Pressure 159/97 H 10/01/20 22:15 Pulse Oximetry 98 10/01/20 22:15 Temperature 36.5 C 10/01/20 22:15 Temperature Source Skin 10/01/20 22:15 Pulse 75 10/01/20 22:15 Respiratory Rate 18 10/01/20 22:15 Respiratory Effort Non-Labored 10/01/20 22:19 Blood Pressure 159/97 H 10/01/20 22:15 Pulse Oximetry 98 10/01/20 22:15 Pain Level 1 10/01/20 22:15
== END 2020-10-01 22:50 | disposition home or self-care (01) ==
PROVIDERS: Emergency Provider Physician Assistant; PCP Nurse Practitioner Primary Care
DX: S80.261A Insect bite (nonvenomous), right knee, initial encounter (principal); W57.XXXA Bitten or stung by nonvenomous insect and other nonvenomous arthropods, initial encounter
CPT/HCPCS: 99282; 99283

== ENCOUNTER 2021-09-12 23:21 | Emergency (ER) | payer OTHER, SELFPAY | END 2021-09-13 00:17 | disposition left against medical advice (07) | PROVIDERS: PCP Nurse Practitioner Primary Care | DX: Z53.21 Procedure and treatment not carried out due to patient leaving prior to being seen by health care provider (principal) ==

== ENCOUNTER 2021-10-13 13:51 | Emergency (ER) | payer MEDICARE, OTHER, SELFPAY ==
--- NOTE | 2021-10-13 13:45 | RT.EKG_ITS ---
APPROVED REPORT Exam: Resting ECG Reason for Exam: GRACE Patient Location: E HR:58 bpm ECG Measurements Heart Rate 58 AXIS GA 177 P 54 QRSd 107 QRS 6 QT 409 T 28 QTc 403 Conclusion Sinus bradycardia...rate< 60. Sinus. No STEMI. I have reviewed and interpreted ECG and agree with software generated interpretation.
[2021-10-13 13:53] VITALS: BP 144/86; PULSE 63; RESP 18; TEMP 36.6; O2SAT 100
--- NOTE | 2021-10-13 14:00 | DI.CT_ITS ---
Exam(s) CT HEAD WO EXAM: CT HEAD WO CLINICAL HISTORY: headache, slurred speech, r/o acute disease. TECHNIQUE: Imaging Protocol: Axial computed tomography images with coronal and sagittal reformatted images were created and reviewed COMPARISON: No exams were available for comparison FINDINGS: Ventricles and Extra axial spaces: Normal in size and morphology for the patient's age. Hemorrhage: None. Cerebral parenchyma: No acute territorial infarct. There is normal warren-white matter differentiation . Midline shift: None. Brainstem/Cerebellum: Normal. Calvarium: Normal. Visualized Paranasal sinuses/Mastoids: Clear. Soft Tissues: Unremarkable. IMPRESSION: 1. No acute intracranial process. 2. Results of this exam have been verbally communicated with provider. RADIATION DOSE DELIVERED: 901.19mGy.cm Total DLP DATA REPOSITORY: All CT scans at this facility are submitted to the National Radiology Data Registry (NRDR) Dose Index Registry (DIR) with the [employer] (A[employer]). RADIATION OPTIMIZATION: All CT scans at this facility use at least one of these dose optimization te chniques: automated exposure control; mA and/or kV adjustment per patient size (includes targeted exa ms where dose is matched to clinical indication); or iterative reconstruction.
--- NOTE | 2021-10-13 14:11 | DI.RAD_ITS ---
Exam(s) XR CHEST 2V PA LATERAL EXAM: XR CHEST 2V PA LATERAL CLINICAL HISTORY: weakness, r/o acute disease TECHNIQUE: 2D digital imaging was performed of the chest. Two images were obtained. PA and lateral views were obtained. COMPARISON: CR XR CHEST 2V PA LATERAL from 01/29/2018 FINDINGS: MEDIASTINUM: Normal. HEART: Normal. PULMONARY VASCULATURE: Normal. LUNGS: Clear. PLEURAL SPACE: No pleural effusion or pneumothorax. BONE:Within normal limits for the patient's age. OTHER FINDINGS:Normal. IMPRESSION: No acute pulmonary findings. DATA REPOSITORY: RADIATION DOSE DELIVERED:
--- NOTE | 2021-10-13 14:11 | NUR.NOTE ---
Nursing Note:Pt seen by provider, to di on monitor via stretcher for ordered exam w/RN.
--- NOTE | 2021-10-13 14:14 | ED.GENADUL_ITS ---
Discharge Plan Disposition Patient Disposition: HOME Condition: Improving Discharge Details Clinical Impression: Anxiety Primary Care Provider: Nara Ackerman ED Provider: Shon Gilmore Home Meds and New Rx's Prescriptions: No Action atorvastatin 20 mg Tablet 20 mg PO QHS lisinopril 20 mg Tablet 20 mg PO DAILY insulin glargine 100 unit/mL (3 mL) Insulin Pen 20 unit SUBCUT QHS Risperdal Consta 50 mg/2 mL Syringe 50 mg IM Q2W Discharge Instructions Instructions: Anxiety (ED) Additional Instructions: Please follow-up with your primary care physician. Please return to the emergency department for any worsening symptoms. Discharge Data Discharge Date/Time-TO BE ENTERED AT DEPARTURE: 10/13/21 17:53 Medical Decision Making <Annie Mckeon, - Last Filed: 10/14/21 22:24> 10/13/21 Dr. Mckeon 1415 -- 40-year-old male with a history of obesity, diabetes, schizoaffective disorder, hypertension presents for a complaint of not feeling good and EMS report of hyperglycemia. Patient reports to me his main complaint is paranoia causing a feeling that I can't speak. Pt also admits to similar episodes of difficulty speaking with anxiety and paranoia. Glucose 372 on arrival. Pt states his normal glucose is in the 300 range. Vitals within normal limits. EKG notes a rate of 58, sinus, no STEMI nondiagnostic. Patient appears significantly anxious with stuttering speech. He otherwise has no focal deficits on exam and answers questions appropriately. Presentation does not appear consistent with acute CVA, meningitis or ACS. Suspect psychiatric component. Considering his medical history, will obtain screening labs, CT head, chest x-ray, urinalysis, VBG. We will give a dose of Ativan and IV Tylenol. 1545 -- Labs and imaging reviewed and unremarkable. Patient remains significantly drowsy after Ativan. He has been unable to provide a urine sample. We will continue to monitor and attempt to feed and ambulate. 1640 --patient sleeping but able to awaken and he states he feels much better. Will obtain a urine sample, recheck glucose and plan to feed and ambulate. Case endorsed to Dr. Gilmore to follow up on urinalysis, fingerstick glucose and reassess after meal and ambulatory trial. If patient continues to feel better, will plan for discharge to home with follow-up with PCP. 10/13/21 Dr. Gilmore 17: 40 patient resting comfortably no acute distress. Blood sugar downtrending after fluid bolus. No evidence of UTI. Troponin negative. Patient asymptomati c at this time. Home care instructions and return precautions given Medical Records Medical records reviewed: Yes I reviewed the patient's medical records. Imaging Data Radiologic Study: Radiologist's impression: ?CT HEAD WO CLINICAL HISTORY: ? headache, slurred speech, r/o acute disease. ? TECHNIQUE:? Imaging Protocol: Axial computed tomography images with coronal and sagittal reformatted images were created and reviewed COMPARISON:? No exams were available for comparison FINDINGS: Ventricles and Extra axial spaces: Normal in size and morphology for the patient's age. Hemorrhage: None. Cerebral parenchyma: No acute territorial infarct.? There is normal warren-white matter differentiation.? Midline shift: None. Brainstem/Cerebellum: Normal. Calvarium: Normal. Visualized Paranasal sinuses/Mastoids: Clear. Soft Tissues: Unremarkable. IMPRESSION: 1. No acute intracranial process. 2. Results of this exam have been verbally communicated with provider. XR CHEST 2V PA ? LATERAL CLINICAL HISTORY:? weakness, r/o acute disease TECHNIQUE:? 2D digital imaging was performed of the chest.? Two images were obtained.? PA and lateral views were obtained. COMPARISON:? CR XR CHEST 2V PA ? LATERAL from 01/29/2018 FINDINGS: MEDIASTINUM: Normal.? HEART: Normal. PULMONARY VASCULATURE: Normal. LUNGS: Clear. ? PLEURAL SPACE: No pleural effusion or pneumothorax. BONE:Within normal limits for the patient's age.? OTHER FINDINGS:Normal.? IMPRESSION: No acute pulmonary findings. Lab Data Lab results reviewed: Yes I reviewed the patient's lab results. Labs: Laboratory Tests Range/Units 10/13/21 10/13/21 10/13/21 14:00 14:00 14:00 WBC (4.4-10.8) 10^3/uL 7.31 RBC (4.36-5.78) 10^6/uL 4.84 Hgb (13.5-17.5) g/dL 15.1 Hct (40.0-50.0) % 42.6 MCV (80-95) fL 88 MCH (27.0-33.0) pg 31.2 MCHC (32.0-36.0) % 35.4 RDW (11.8-14.1) % 10.6 L Plt Count (130-400) 10^3/uL 229 MPV (8.0-11.0) fL 10.2 Immature Gran % 0.4 Neutrophils % 57.2 Lymphocytes % 33.0 Monocytes % 7.1 Eosinophils % 1.5 Basophils % 0.8 Nucleated RBC % (0.0-0.3) % 0.0 Absolute Neutrophils (1.2-6.7) 10^3/uL 4.18 Absolute Lymphocytes (1.2-3.4) 10^3/uL 2.41 Absolute Monocytes (0.1-0.8) 10^3/uL 0.52 Absolute Eosinophils (0.0-0.7) 10^3/uL 0.11 Absolute Basophils (0.0-0.2) 10^3/uL 0.06 VBG pH (7.31-7.41) 7.35 VBG pCO2 (41-51) mmHg 49 VBG pO2 mmHg 36 VBG HCO3 (23-28) mmol/L 27 VBG Total CO2 (24-29) mmol/L 24 VBG O2 Saturation % 67 VBG Base Excess (-2-3) mmol/L 2 Sodium (136-145) mmol/L 138 Potassium (3.5-5.1) mmol/L 3.7 Chloride (98-107) mmol/L 103 Carbon Dioxide (21.0-32.0) mmol/L 28.1 Anion Gap (3-11) mmol/L 6.9 BUN (7-18) mg/dL 14 Creatinine (0.70-1.30) mg/dL 0.8 Estimated GFR/1.73 m2 (mL/min/1.73m2) >= 60.00 Glucose (74-106) mg/dL 368 H Calcium (8.5-10.1) mg/dL 8.3 L Magnesium (1.8-2.4) mg/dL 1.9 Total Bilirubin (0.2-1.0) mg/dL 0.4 AST (15-37) U/L 21 ALT (16-63) U/L 34 Alkaline Phosphatase (46-116) U/L 115 Troponin I (<or=60) ng/L < 50 Total Protein (6.4-8.2) g/dL 6.9 Albumin (3.4-5.0) g/dL 3.7 ECG Data Attestation: I personally reviewed and interpreted this ECG (s) as follows: Interpretation: Rate of 68, sinus, no STEMI and nondiagnostic. <Shon Gilmore MD - Last Filed: 10/13/21 17:41> 1415 -- 40-year-old male with a history of obesity, diabetes, schizoaffective disorder, hypertension presents for a complaint of not feeling good and hyperglycemia. Patient reports to me his main complaint is paranoia causing a feeling that I can't speak. Pt also admits to similar episodes of difficulty speaking with anxiety and paranoia. Glucose 372 on arrival. Vitals within normal limits. EKG notes a rate of 58, sinus, no STEMI nondiagnostic. Patient appears significantly anxious with stuttering speech. He otherwise has no focal deficits on exam and answers questions appropriately. Considering his history, will obtain screening labs, CT head, chest x-ray, urinalysis, VBG. We will give a dose of Ativan and IV Tylenol. 1545 -- Labs and imaging reviewed and unremarkable. Patient remains significantly drowsy after Ativan. He has been able to provide a urine sample. We will continue to monitor and attempt to feed and ambulate. 1640 --patient sleeping but able to awaken and he states he feels much better. Will obtain a urine sample, recheck glucose and plan to feed and ambulate. Case endorsed to Dr. Gilmore to follow up on urinalysis, fingerstick glucose and reassess after meal and ambulatory trial. If patient continues to feel better, will plan for discharge to home with follow-up with PCP. 17: 39 patient resting comfortably no acute distress. Blood sugar downtrending after fluid bolus. No evidence of UTI. Troponin negative. Patient asymptomatic at this time. Home care instructions and return precautions given HPI <Annie Mckeon DO - Last Filed: 10/14/21 22:24> General Mode of arrival: ambulatory . Date/Time Provider Initiated Documentation: 10/13/21 14:42 . Limitations to Documentation: no limitations . Information obtained by: patient . HPI Narrative: Patient is a 40-year-old male who presents from [facility] for a complaint of not feeling good and hyperglycemia. EMS reports on their arrival, blood glucose 372 for which she was given 1 L of normal saline. Patient states he felt paranoia and felt that he was having difficulty speaking due to this. Patient states he still feels anxious. Patient states he has had similar episodes happen in the past in which he becomes paranoid and having difficulty speaking. Patient states his normal blood sugar is in the 300 range. Patient does admit to a right-sided headache that lasted a few seconds earlier today and then resolved. He is currently admitting to return of a right-sided headache but denies any dizziness, blurry vision, chest pain, shortness of breath, abdominal pain, vomiting or diarrhea. He denies any recent alcohol or drug use. Related Data Home Medications Medication Instructions Recorded Confirmed risperidone microspheres 50 mg/2 50 mg IM Q2W 08/09/18 10/01/20 mL intramuscular susp,ext release (Risperdal Consta) atorvastatin 20 mg tablet 20 mg PO QHS 10/13/21 10/13/21 insulin glargine 100 unit/mL (3 20 unit subcut QHS 10/13/21 10/13/21 mL) subcutaneous pen lisinopril 20 mg tablet 20 mg PO DAILY 10/13/21 10/13/21 Allergies Allergy/AdvReac Type Severity Reaction Status Date / Time No Known Allergies Allergy Unverified 08/29/20 01:28 General Stated Complaint: AMS/LOC MELISSA: 2 Review of Systems <Annie Mckeon DO - Last Filed: 10/14/21 22:24> All systems reviewed & are unremarkable except as noted in HPI and below Constitutional Constitutional: Denies chills, Denies excessive sweating, Denies fatigue, Denies fever(s), Denies weakness and Denies weight loss Eyes Eyes: Reports system reviewed and no additional complaints, except as documented and Denies blurry vision ENT Ears, Nose, Mouth, and Throat: Denies vertigo, Denies dizziness, Denies otalgia, Denies nasal congestion, Denies sore throat and Denies throat swelling Cardiovascular Cardiovascular: Denies chest pain, Denies syncope, Denies rapid heart rate and Denies dyspnea Respiratory Respiratory: Denies chest congestion, Denies cough, Denies pain on inspiration and Denies dyspnea Gastrointestinal Gastrointestinal: Denies abdominal pain, Denies diarrhea and Denies vomiting Genitourinary Genitourinary: Denies hematuria, Denies dysuria and Denies flank pain Musculoskeletal Musculoskeletal: Denies back pain and Denies joint swelling Integumentary/Breasts Skin/Breast: Denies lesions and Denies rash Neurologic Neurologic: Denies behavioral changes, Denies confusion, Denies vertigo, Denies dizziness, Denies syncope, Denies localized weakness and Denies weakness Psychiatric Psychiatric: Denies behavioral changes, Denies confusion and Denies depression Endocrine Endocrine: Denies excessive sweating and Denies fatigue Hematologic/Lymphatic Hematologic/Lymphatic: Denies easy bruising and Denies lymphadenopathy Allergic/Immunologic Allergic/Immunologic: Denies throat swelling PFSH <Annie Mckeon DO - Last Filed: 10/14/21 22:24> All Active Problems (Updated 10/13/21 @ 16:18 by Annie Mckeon DO) Acute lumbar back pain (Acute) 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 (Acute) Degenerative arthritis of metacarpophalangeal joint of right thumb (Acute) Inguinal mass (Acute) Accidental spider bite (Acute) Anxiety (Chronic) Medical History (Updated 10/13/21 @ 16:18 by Annie Mckeon DO) Diabetes HTN (hypertension) Schizoaffective disorder Surgical History History of foot surgery Social History Smoking risk assessment performed?: No Substance use type: former substance user Exam <Annie Mckeon DO - Last Filed: 10/14/21 22:24> Const General: cooperative Nutritional Appearance: obese morbidly obese Orientation: alert, awake and oriented x3 HENMT Head: normal to inspection Ears: hearing grossly normal bilaterally and external ears normal General nose exam: external nose normal Face and sinus: normal facial exam Mouth: oral mucosae normal Teeth and gingiva: dentition normal Throat: posterior oropharynx normal Eyes General: appearance normal, both eyes and all related structures Eyelids: eyelids normal Pupils: PERRL EOM: EOM intact bilaterally Neck Neck: normal visual inspection Lymphatic: no lymphadenopathy noted Chest Chest: normal inspection of the chest Resp Effort & Inspection: normal respiratory effort and able to speak in complete sentences Auscultation: clear to auscultation bilaterally Cardio Rate: regular rate Rhythm: regular rhythm GI Inspection: normal to inspection Palpation: soft, not firm, no guarding, no hepatosplenomegaly, no masses and nontender Auscultation: normal bowel sounds Back/Spine/Pelvis Back: no CVA tenderness Skin General skin exam: no rashes or lesions noted Neuro General: patient oriented x3, moves all extremities, no meningeal signs, no focal motor deficits and other (Drowsy but arousable) Cranial Nerves: CN's II-XI intact bilaterally Cognition: normal cognition Speech: abnormal speech stuttering Gait: normal gait Motor: muscle tone normal throughout and strength 5/5 throughout Sensory Exam: no sensory deficits noted Extrem General: normal to inspection, full ROM and capillary refill normal Psych Appearance: grossly normal Mental Status: mental status grossly normal Speech and Movement: catatonic Affect: anxious affect Attitude: cooperative Thought Process: normal Thought Content: normal Course <Annie Mckeon DO - Last Filed: 10/14/21 22:24> Vital Signs Vital signs: Vital Signs Temperature 97.9 F 10/13/21 13:53 Pulse 63 10/13/21 13:53 Respiratory Rate 18 10/13/21 13:53 Blood Pressure 144/86 H 10/13/21 13:53 Pulse Oximetry 100 10/13/21 13:53 Temperature 97.9 F 10/13/21 13:53 Temperature Source Temporal Artery Scan 10/13/21 13:53 Pulse 63 10/13/21 13:53 Respiratory Rate 18 10/13/21 13:53 Blood Pressure 144/86 H 10/13/21 13:53 Blood Pressure Position Sitting 10/13/21 13:53 Pulse Oximetry 100 10/13/21 13:53 Oxygen Delivery Method Room Air 10/13/21 13:53 Oxygen Flow Rate 0 10/13/21 13:53 Sign Out <Annie Mckeon DO - Last Filed: 10/14/21 22:24> Sign Out Data: Sign Out Comment: Follow-up on urinalysis and repeat fingerstick glucose. If sugar remains high, consider giving insulin. Plan to feed and ambulate. If patient continues to feel better, will plan for discharge to home. Last updated by Annie Mckeon DO at 10/13/21 16:45
[2021-10-13 14:16] LABS: BE (Venous) 2 mmol/L (-2-3); HCO3 (Venous) 27 mmol/L (23-28); O2 Sat (Venous) 67 %; TCO2 (Venous) 24 mmol/L (24-29); pCO2 (Venous) 49 mmHg (41-51); pH (Venous) 7.35 (7.31-7.41); pO2 (Venous) 36 mmHg
[2021-10-13 14:17] LABS: Abs Immature Grans 0.03 10^3/uL (0.0-0.06); Absolute Basophil Count 0.06 10^3/uL (0.0-0.2); Absolute Eosinophil Count 0.11 10^3/uL (0.0-0.7); Absolute Lymphocyte Count 2.41 10^3/uL (1.2-3.4); Absolute Monocyte Count 0.52 10^3/uL (0.1-0.8); Absolute Neutrophil Count 4.18 10^3/uL (1.2-6.7); Basophils % 0.8; Eosinophils % 1.5; HCT 42.6 % (40.0-50.0); HGB 15.1 g/dL (13.5-17.5); Immature Grans % 0.4; MCH 31.2 pg (27.0-33.0); MCHC 35.4 % (32.0-36.0); MCV 88 fL (80-95); MPV 10.2 fL (8.0-11.0); Monocytes % 7.1; Neutrophils % 57.2; Platelet Count 229 10^3/uL (130-400); RBC 4.84 10^6/uL (4.36-5.78); RDW 10.6 % (11.8-14.1); RDW-SD 34.4 fL; WBC 7.31 10^3/uL (4.4-10.8)
[2021-10-13 14:42] LABS: ALT 34 U/L (16-63); AST 21 U/L (15-37); Albumin 3.7 g/dL (3.4-5.0); Alkaline Phosphatase 115 U/L (46-116); Anion Gap 6.9 mmol/L (3-11); BUN 14 mg/dL (7-18); Bilirubin, Total 0.4 mg/dL (0.2-1.0); CO2 28.1 mmol/L (21.0-32.0); CREATININE 0.8 mg/dL (0.70-1.30); Calcium 8.3 mg/dL (8.5-10.1); Chloride 103 mmol/L (98-107); Glucose 368 mg/dL (74-106); Magnesium 1.9 mg/dL (1.8-2.4); Potassium 3.7 mmol/L (3.5-5.1); Sodium 138 mmol/L (136-145); Total Protein 6.9 g/dL (6.4-8.2); Troponin I < 50 ng/L (<or=60)
[2021-10-13] MEDS: ACETAMINOPHEN 1,000 MG/100 ML BTL 400 MG IVPB (14:55)
[2021-10-13 15:03] VITALS: RESP 25
[2021-10-13] MEDS: LORazepam 20 MG/10 ML VIAL IVP (15:18)
--- NOTE | 2021-10-13 15:36 | NUR.NOTE ---
Patient stated the need to void. Urinal given secondary to patient stating he was too fatigued to walk to the restroom. Some time was given, but then patient stated he could not void. Will continue to monitor. Nursing Note:
[2021-10-13] MEDS: Normal Saline 1,000 ML 1000 ML IV (15:56)
--- NOTE | 2021-10-13 16:00 | PDOC.ERCMPRO ---
- If Service Date Differs Date of service: 10/13/21 Time of Service: 16:00 Care Management Progress Note SBIRT screen: positive for anxiety (HERMES 15) and nicotine. Pt states he is trying to cut down and quit nicotine and was provided with resources fro cessation programs. [facility] He was provided with the 24 hour crisis line for support as needed.
[2021-10-13 16:55] LABS: Bilirubin Negative (Negative); Blood Negative (Negative); Clarity Clear (Clear); Glucose 500 mg/dL (Negative); Ketones Trace mg/dL (Negative); Leukocyte Esterase Negative (Negative); Nitrite Negative (Negative); Urobilinogen 0.2 EU/dL (Up TO 0.2)
== END 2021-10-13 17:53 | disposition home or self-care (01) ==
PROVIDERS: Physician Assistant; Emergency Provider Emergency Medicine; PCP Nurse Practitioner Primary Care
DX: F41.9 Anxiety disorder, unspecified (principal); E11.65 Type 2 diabetes mellitus with hyperglycemia; F25.9 Schizoaffective disorder, unspecified; I10 Essential (primary) hypertension; E66.01 Morbid (severe) obesity due to excess calories; Z79.4 Long term (current) use of insulin
CPT/HCPCS: 36416; 80053; 82805; 82962; 93005; 96361; 96374; 96375; 99284; 70450; 71046; 81003; 83735; 84484; 85025; 93010; 99285; J0131; J3490

== ENCOUNTER 2021-10-16 21:45 | Emergency (ER) | payer MEDICARE, SELFPAY | END 2021-10-16 22:32 | disposition LWBS | PROVIDERS: PCP Nurse Practitioner Primary Care | DX: Z53.21 Procedure and treatment not carried out due to patient leaving prior to being seen by health care provider (principal) ==